=== PATIENT | male | born 1955 | race Caucasian/White ===

== ENCOUNTER → 2022-12-24 | Outpatient (CLI) | payer OTHER ==
--- NOTE | 2022-12-25 06:30 | XR ---
EXAMINATION TYPE: XR foot complete LT DATE OF EXAM: 12/24/2022 CLINICAL HISTORY: Pain after injury TECHNIQUE: Frontal, lateral, and oblique images of the left foot are obtained. COMPARISON: None FINDINGS: There is no acute fracture/dislocation evident in the left foot. The joint spaces in the left foot appear within normal limits. The overlying soft tissue appears unremarkable. IMPRESSION: There is no acute fracture or dislocation in the left foot.
== END | disposition home or self-care (01) ==
LOC: RADXRMAIN 16:36
PROVIDERS: ATTEND Emergency Medicine
DX: S93.602D Unspecified sprain of left foot, subsequent encounter (principal)

== ENCOUNTER → 2022-12-30 | Outpatient (CLI) | payer OTHER ==
--- NOTE | 2023-01-02 11:56 | MR ---
EXAMINATION TYPE: MR foot LT wo con DATE OF EXAM: 12/30/2022 COMPARISON: Radiograph 12/24/2022 HISTORY: 67-year-old male S93.602D, Lt foot pain, swelling, S/P injury. TECHNIQUE: Multiplanar, multisequence images of the left forefoot and midfoot were obtained without I V contrast. FINDINGS: Scattered marrow edema/bone bruises throughout the midfoot. Corresponding subtle nondisplaced/incompl ete fractures as follows: Oblique fracture involving the lateral plantar first metatarsal base, sagittal image 16 and axial sunny ge 13. Coronal image 29. Second metatarsal base, coronal image 30. Plantar aspect of the third metatarsal base, coronal image 32. Fourth metatarsal base, axial image 11. Additional nondisplaced, incomplete intra-articular fracture involving the lateral plantar aspect of the distal cuboid, sagittal image 9, axial image 11, and coronal image 40. The dorsal Lisfranc ligament is mildly thickened and inhomogeneous. The intraosseous and plantar port ion appears intact. Prominent generalized soft tissue swelling. IMPRESSION: 1. Scattered midfoot bone contusions. Corresponding subtle nondisplaced or incomplete fractures invol ving the first, second, third, and fourth metatarsal bases. 2. Low-grade sprain of the Lisfranc ligament. 3. Generalized subcutaneous soft tissue swelling.
== END | disposition home or self-care (01) ==
LOC: RADMRIMAIN 07:28
PROVIDERS: ATTEND Emergency Medicine
DX: S93.602D Unspecified sprain of left foot, subsequent encounter (principal); S90.32XA Contusion of left foot, initial encounter